=== PATIENT | female | born 1945 | race Caucasian/White ===

== ENCOUNTER 2018-05-06 17:05 | Emergency (ER) | payer MEDICARE, BC, OTHER ==
--- NOTE | 2018-05-06 17:22 | ED Physician Documentation ---
History of Present Illness - Stated complaint Stated Complaint: RT MIDDLE FINGER INJURY - Chief complaint Chief Complaint: Ext Problem - Additonal information Additional information: hx from pt 73 female jammed her finger twice - measuring windows and against a desk no lac pain to mid and distal phalange and slight deformity to DIP limited flexion can extend some bruising Review of Systems Musculoskeletal: reports: Other (finger pain) PD PAST MEDICAL HISTORY - Past Medical History Cardiovascular: High cholesterol - Past Surgical History Past Surgical History: Yes General: Appendectomy HEENT: Tonsil/Adenoidectomy - Present Medications Home Medications: Ambulatory Orders Medication Instructions Recorded Confirmed Aspirin [Aspirin EC] 81 mg PO DAILY 11/13/13 11/13/13 Atorvastatin Calcium 40 mg PO 11/13/13 11/13/13 - Allergies Allergies/Adverse Reactions: Allergies Allergy/AdvReac Type Severity Reaction Status Date / Time niacin AdvReac Rash Verified 05/06/18 17:11 - Social History Does the pt smoke?: No Smoking Status: Never smoker Does the pt drink ETOH?: No Does the pt have substance abuse?: No - Immunizations Immunizations are current?: No Immunizations: TDAP >10years/unknown - POLST Patient has POLST: No PD ED PE NORMAL - Vitals Vital signs reviewed: Yes - Extremities Extremities: Other (R 3rd finger: TTP mid and distal phalange, swelling and slight def to DIP, limited flexion, able to extend, mild bruise, MSV intact) Results - Vitals Vitals: Vital Signs - 24 hr 05/06/18 17:08 Temperature 36.5 C Heart Rate 95 Respiratory 16 Rate Blood Pressure 131/63 H O2 Saturation 93 Oxygen O2 Source Room air - Rads (name of study) finger Radiology: See rad report (non displaced possibly incomplete fx middle phalange) Departure - Departure Disposition: Home, Self Care Clinical Impression: Finger fracture, right Qualifiers: Encounter type: initial encounter Finger: middle finger Fracture type: closed Phalanx: middle Fracture alignment: nondisplaced Qualified Code(s): S62.652A - Nondisplaced fracture of middle phalanx of right middle finger, initial encounter for closed fracture Condition: Good Instructions: ED Fx Finger Closed Follow-Up: SUDHA HERNANDEZ [Primary Care Provider] - Comments: There is a non displace fracture in the middle bone of the finger This should heal fine as long as you wear the splint and do not re-injure the finger until the bone is set. Tylenol as needed for pain. Ice and elevation will ease the pain and swelling as well
--- NOTE | 2018-05-06 18:19 | XRAY Report ---
Reason: pain mid and distal phalange and DIP 3rd finger Procedure Date: 05/06/2018 Accession Number: [id number] / [id number] Procedure: XR - Finger(s) RT CPT Code: FULL RESULT: EXAM: RIGHT THIRD DIGIT RADIOGRAPHY EXAM DATE: 05/06/2018 06:06 PM. CLINICAL HISTORY: Pain mid and distal phalange and DIP 3rd finger. COMPARISON: None. TECHNIQUE: 3 views. FINDINGS: Bones: Osteopenia. Subtle lucency in middle phalangeal base compatible with nondisplaced and possibly incomplete fracture. Otherwise unremarkable. Joints: Marked degenerative changes of the third DIP joint with lesser involvement of the other visualized DIP joints. Minimal narrowing of the PIP joints. Soft Tissues: Mild soft issue swelling. IMPRESSION: 1. Subtle nondisplaced and possibly incomplete fracture of third middle phalangeal base. 2. Osteoarthritis. [facility]
[2018-05-06 18:47] VITALS: BP 134/73
== END 2018-05-06 18:50 | disposition home or self-care (01) ==
LOC: ED 17:05
DX: S62.652A Nondisplaced fracture of middle phalanx of right middle finger, initial encounter for closed fracture (principal); W23.0XXA Caught, crushed, jammed, or pinched between moving objects, initial encounter; E78.00 Pure hypercholesterolemia, unspecified; Z79.82 Long term (current) use of aspirin
CPT/HCPCS: 29130; 73140; 99282; 99283

== ENCOUNTER 2019-07-12 15:53 | Outpatient (CLI) | payer MEDICARE, BC, OTHER | END 2019-07-12 15:54 | disposition home or self-care (01) | LOC: COV 15:53 | PROVIDERS: ATTEND Family Medicine | DX: R05 Cough (principal); R50.9 Fever, unspecified | CPT/HCPCS: 81599; U0002 ==